=== PATIENT | female | born 1990 | race Caucasian/White ===

== ENCOUNTER 2021-11-04 17:04 | Day surgery (SDC) | payer OTHER, SELFPAY ==
[2021-11-04] MEDS ORDERED: hydrALAZINE 20 MG/ML VIAL SLOW IVP PRN (17:37)
[2021-11-04 17:53] VITALS: BMI 36.0
[2021-11-04] MEDS ORDERED: Lactated Ringer's 1,000 ML IV SCH (18:15)
[2021-11-04] MEDS ORDERED: Acetaminophen 500 MG TAB PO SCH (21:15)
[2021-11-04] MEDS ORDERED: Methocarbamol 500 MG TAB PO SCH (21:30)
[2021-11-05 00:38] LABS: Fetal Membranes Rupture No Membranes Rupture (No Rupture)
== END 2021-11-05 00:30 | disposition home or self-care (01) ==
LOC: CSHLD/OP 17:04
PROVIDERS: ATTEND Student in an Organized Health Care Education/Training Program
DX: O36.8130 Decreased fetal movements, third trimester, not applicable or unspecified (principal); O99.891 Other specified diseases and conditions complicating pregnancy; M54.50 Low back pain, unspecified; O99.283 Endocrine, nutritional and metabolic diseases complicating pregnancy, third trimester; E86.0 Dehydration; E28.2 Polycystic ovarian syndrome; O10.913 Unspecified pre-existing hypertension complicating pregnancy, third trimester; O99.213 Obesity complicating pregnancy, third trimester; Z3A.30 30 weeks gestation of pregnancy; Z87.891 Personal history of nicotine dependence; Z79.82 Long term (current) use of aspirin; Z91.018 Allergy to other foods
CPT/HCPCS: 76816; 76819; 84112; 96360; 96361; 99285

== ENCOUNTER 2021-11-20 16:48 | Inpatient (IN) | payer OTHER ==
[2021-11-20 17:43] VITALS: BMI 42.3
[2021-11-20 17:54] LABS: Hemoglobin 12.7 g/dL (12.0-15.5); Mean Corpuscular HGB CONC 34.5 g/dL (32.0-36.0); Mean Platelet Volume 11.9 fl (7.4-10.4); Platelet Count 159 10x3/uL (150-450); Red Blood Cell (RBC) Count 4.23 10x6/uL (3.90-5.03); White Blood Cell (WBC) Count 8.9 10x3/uL (3.5-10.5)
[2021-11-20 18:04] LABS: ALT (SGPT) 17 U/L (8-55); AST (SGOT) 18 U/L (5-34); Albumin 3.1 g/dL (3.5-5.0); Alkaline Phosphatase 139 U/L (40-110); Anion Gap 13 mmol/L (10-20); BUN (Urea Nitrogen) 7 mg/dL (7.0-18.7); Bilirubin, Total 0.2 mg/dL (0.2-1.2); Calc. Creatinine Clearance 292 mL/min (70-130); Calcium 8.9 mg/dL (7.8-10.44); Carbon Dioxide 20 mmol/L (22-29); Chloride 107 mmol/L (98-107); Estimated GFR 126; Globulin 2.9 g/dL (2.4-3.5); Glucose 172 mg/dL (70-105); Potassium 3.6 mmol/L (3.5-5.1); Sodium 136 mmol/L (136-145)
[2021-11-20] MEDS: hydrALAZINE 20 MG/ML VIAL SLOW IVP PRN ×3 (18:16→20:14)
[2021-11-20] MEDS ORDERED: hydrALAZINE 20 MG/ML VIAL SLOW IVP SCH (19:00)
[2021-11-20] MEDS ORDERED: Calcium Gluc 4.6 MEQ/10 ML (100 MG/ML) SLOW IVP PRN (19:01)
[2021-11-20] MEDS ORDERED: Labetalol HCl 100 MG/20 ML VIAL SLOW IVP PRN (19:01)
[2021-11-20] MEDS ORDERED: Lorazepam 2 MG/ML VIAL SLOW IVP PRN (19:01)
[2021-11-20] MEDS ORDERED: hydrALAZINE 20 MG/ML VIAL SLOW IVP PRN (19:01)
[2021-11-20] MEDS ORDERED: Promethazine HCl 25 MG/ML VIAL IM PRN (19:05)
[2021-11-20] MEDS ORDERED: Ondansetron PF 4 MG/2 ML Vial IVP PRN (19:05)
[2021-11-20] MEDS ORDERED: Magnesium Sulfate 20 gm/500 ml 20 GM/500 ML BAG ONE (19:12)
[2021-11-20] MEDS ORDERED: Magnesium Sulfate/D5W 1 GM/100 ML BAG IVPB SCH ×2 (19:15)
[2021-11-20] MEDS: Magnesium Sulfate 20 gm/500 ml 20 GM/500 ML BAG IVPB PRN ×2 (19:20→23:47)
[2021-11-20] MEDS: Betamet Acet/Betamet Na Ph 30 MG/5 ML VIAL IM SCH (19:55)
[2021-11-20 22:24] LABS: Hep B Surf Ag Non-Reactive S/CO (NonReactive); Syphilis Antibody Nonreactive (Nonreactive); Syphilis Antibody Index 0.04 S/CO (<1.00 Non-Reactive)
[2021-11-20 22:24] LABS: SARS-CoV-2 NAA Rapid Test DETECTED (NotDetected)
[2021-11-20 22:26] LABS: HBSAg Index 0.19 S/CO (0-0.99)
[2021-11-20 23:50] LABS: HIV (1/2) Antibody/Antigen Non-Reactive (NonReactive); HIV 1/2 INDEX 0.06 S/CO (<1.00)
[2021-11-21] MEDS: Labetalol HCl 100 MG TAB PO SCH ×2 (08:31→20:55)
[2021-11-21 10:11] LABS: #Monocytes 0.6 10x3/uL (0.0-1.1); %Basophils 0.1 % (0.0-2.0); %Eosinophils 0.1 % (0.0-6.0); %Lymphocytes 9.8 % (18.0-47.0); %Monocytes 4.3 % (0.0-10.0); %Neutrophils 85.2 % (40.0-75.0); Hemoglobin 13.1 g/dL (12.0-15.5); Mean Corpuscular HGB CONC 34.5 g/dL (32.0-36.0); Mean Corpuscular Hemoglobin 30.8 pg (27.0-33.0); Mean Corpuscular Volume 89.2 fl (81.6-98.3); Mean Platelet Volume 11.8 fl (7.4-10.4); Platelet Count 184 10x3/uL (150-450); RBC Distribution Width 12.9 % (11.5-14.5); Red Blood Cell (RBC) Count 4.26 10x6/uL (3.90-5.03); White Blood Cell (WBC) Count 12.9 10x3/uL (3.5-10.5)
[2021-11-21 10:48] LABS: ALT (SGPT) 17 U/L (8-55); AST (SGOT) 18 U/L (5-34); Albumin 3.2 g/dL (3.5-5.0); Alkaline Phosphatase 157 U/L (40-110); Anion Gap 15 mmol/L (10-20); BUN (Urea Nitrogen) 5 mg/dL (7.0-18.7); Bilirubin, Total 0.6 mg/dL (0.2-1.2); Calc. Creatinine Clearance 303 mL/min (70-130); Calcium 8.4 mg/dL (7.8-10.44); Carbon Dioxide 19 mmol/L (22-29); Chloride 105 mmol/L (98-107); Estimated GFR 127; Globulin 3.1 g/dL (2.4-3.5); Glucose 113 mg/dL (70-105); Potassium 3.9 mmol/L (3.5-5.1); Protein, Total 6.3 g/dL (6.0-8.3); Sodium 135 mmol/L (136-145)
[2021-11-21] MEDS: Betamet Acet/Betamet Na Ph 30 MG/5 ML VIAL IM SCH (19:16)
[2021-11-22] MEDS: Labetalol HCl 100 MG TAB PO SCH ×2 (08:29→20:56)
[2021-11-22] MEDS: Prenatal Vitamin 1 TAB PO SCH (08:29)
[2021-11-22] MEDS: Aspirin 81 mg Enteric Coated Tablet PO SCH (08:29)
[2021-11-22] MEDS ORDERED: Dextrose 5% in Water 1,000 ML IV PRN (21:38)
[2021-11-22] MEDS ORDERED: Dextrose 50% Abboject 50 ML SYRINGE SLOW IVP PRN (21:38)
[2021-11-22] MEDS ORDERED: HumaLOG 300 UNITS/3 ML VIAL SC SCH (22:00)
[2021-11-23] MEDS: Labetalol HCl 100 MG TAB PO SCH ×2 (08:14→21:47)
[2021-11-23] MEDS: Aspirin 81 mg Enteric Coated Tablet PO SCH (08:14)
[2021-11-23] MEDS: Prenatal Vitamin 1 TAB PO SCH (08:14)
[2021-11-24 04:53] LABS: ALT (SGPT) 16 U/L (8-55); AST (SGOT) 15 U/L (5-34); Albumin 2.9 g/dL (3.5-5.0); Alkaline Phosphatase 125 U/L (40-110); Anion Gap 16 mmol/L (10-20); BUN (Urea Nitrogen) 8 mg/dL (7.0-18.7); Bilirubin, Total 0.2 mg/dL (0.2-1.2); Calc. Creatinine Clearance 263 mL/min (70-130); Calcium 8.5 mg/dL (7.8-10.44); Carbon Dioxide 21 mmol/L (22-29); Chloride 105 mmol/L (98-107); Estimated GFR 123; Globulin 2.8 g/dL (2.4-3.5); Glucose 172 mg/dL (70-105); Protein, Total 5.7 g/dL (6.0-8.3); Sodium 138 mmol/L (136-145)
[2021-11-24 04:54] LABS: #Monocytes 1.2 10x3/uL (0.0-1.1); #Neutrophils 6.3 10x3/uL (1.5-8.4); %Basophils 0.2 % (0.0-2.0); %Eosinophils 0.1 % (0.0-6.0); %Lymphocytes 18.9 % (18.0-47.0); %Monocytes 12.4 % (0.0-10.0); Hemoglobin 11.6 g/dL (12.0-15.5); Mean Corpuscular HGB CONC 34.2 g/dL (32.0-36.0); Mean Corpuscular Hemoglobin 30.9 pg (27.0-33.0); Mean Corpuscular Volume 90.4 fl (81.6-98.3); Mean Platelet Volume 11.8 fl (7.4-10.4); Platelet Count 143 10x3/uL (150-450); RBC Distribution Width 13.4 % (11.5-14.5); Red Blood Cell (RBC) Count 3.75 10x6/uL (3.90-5.03); White Blood Cell (WBC) Count 9.4 10x3/uL (3.5-10.5)
[2021-11-24] MEDS: Prenatal Vitamin 1 TAB PO SCH (08:14)
[2021-11-24] MEDS: Aspirin 81 mg Enteric Coated Tablet PO SCH (08:14)
[2021-11-24] MEDS: Labetalol HCl 100 MG TAB PO SCH ×2 (08:14→20:27)
[2021-11-24 12:19] LABS: Hemoglobin A1c 5.7 % (4.0-6.0)
[2021-11-25] MEDS: Labetalol HCl 100 MG TAB PO SCH ×2 (07:57→20:30)
[2021-11-25] MEDS: Prenatal Vitamin 1 TAB PO SCH (07:57)
[2021-11-25] MEDS: Aspirin 81 mg Enteric Coated Tablet PO SCH (08:59)
[2021-11-25] MEDS ORDERED: HumaLOG 300 UNITS/3 ML VIAL SC PRN ×2 (11:37)
[2021-11-25] MEDS ORDERED: Magnesium Sulfate 4 GM in Sodium Chloride 0.9% 250 ML 250 ML IVPB SCH (19:00)
[2021-11-25] MEDS ORDERED: Magnesium 2 GM/50 ML(in water) 2 GM in Premix Bag 1 BAG IVPB SCH (19:00)
[2021-11-25] MEDS ORDERED: Ibuprofen 800 MG TAB PO PRN (19:44)
[2021-11-25] MEDS ORDERED: Diphenoxylate HCl/Atropine Tablet PO PRN (19:44)
[2021-11-25] MEDS ORDERED: Misoprostol 200 MCG TAB PR PRN (19:44)
[2021-11-25] MEDS ORDERED: Acetaminophen 500 MG TAB PO PRN (19:44)
[2021-11-25] MEDS ORDERED: Methylergonovine 0.2 MG/ML VIAL IM PRN (19:44)
[2021-11-25] MEDS ORDERED: NS w/ Oxytocin 30 units 500 ML IV SCH (19:44)
[2021-11-25] MEDS ORDERED: Lidocaine 1% (PF) 30 ML VIAL SC PRN (19:44)
[2021-11-25] MEDS ORDERED: Carboprost 250 MCG/ML AMP IM PRN (19:44)
[2021-11-25] MEDS ORDERED: Magnesium Sulfate 20 gm/500 ml 4 GM/100 ML BAG IVPB SCH (19:45)
[2021-11-25] MEDS ORDERED: Magnesium Sulfate 20 gm/500 ml 20 GM/500 ML BAG IVPB PRN (19:45)
[2021-11-25] MEDS ORDERED: Misoprostol 100 MCG TAB ONE (19:52)
[2021-11-25] MEDS ORDERED: Magnesium Sulfate 20 gm/500 ml 20 GM/500 ML BAG ONE (19:52)
[2021-11-25 22:12] LABS: Hemoglobin 13.8 g/dL (12.0-15.5); Mean Corpuscular HGB CONC 33.4 g/dL (32.0-36.0); Mean Corpuscular Hemoglobin 30.5 pg (27.0-33.0); Mean Corpuscular Volume 91.2 fl (81.6-98.3); Mean Platelet Volume 11.8 fl (7.4-10.4); Platelet Count 157 10x3/uL (150-450); RBC Distribution Width 13.3 % (11.5-14.5); Red Blood Cell (RBC) Count 4.53 10x6/uL (3.90-5.03); White Blood Cell (WBC) Count 11.2 10x3/uL (3.5-10.5)
[2021-11-25] MEDS: Misoprostol 100 MCG TAB VAG SCH (22:52)
[2021-11-26] MEDS ORDERED: Misoprostol 100 MCG TAB PO ONE (02:30)
[2021-11-26] MEDS: Magnesium Sulfate 20 gm/500 ml 20 GM/500 ML BAG IVPB PRN ×2 (04:24→23:54)
[2021-11-26] MEDS ORDERED: Misoprostol 100 MCG TAB PO SCH (08:00)
[2021-11-26] MEDS: Prenatal Vitamin 1 TAB PO SCH (08:15)
[2021-11-26] MEDS: Labetalol HCl 100 MG TAB PO SCH ×2 (08:15→21:11)
[2021-11-26] MEDS: Butorphanol Tartrate 1 MG/ML VIAL SLOW IVP PRN ×4 (13:17→19:06)
[2021-11-26 13:57] LABS: SARS-CoV-2 NAA Rapid Test Not Detected (NotDetected)
[2021-11-26] MEDS ORDERED: NS w/ Oxytocin 30 units 500 ML IV SCH (14:15)
[2021-11-26] MEDS ORDERED: hydrALAZINE 20 MG/ML VIAL ONE (17:06)
[2021-11-27] MEDS: Lactated Ringer's 1,000 ML IV SCH ×4 (03:37→20:19)
[2021-11-27] MEDS: Misoprostol 100 MCG TAB VAG SCH ×4 (03:38→15:24)
[2021-11-27] MEDS ORDERED: Famotidine/PF 20 mg/2ml Vial SLOW IVP PRN (09:42)
[2021-11-27] MEDS ORDERED: Bicitra 30 ML UDCUP PO PRN (09:42)
[2021-11-27] MEDS ORDERED: ceFAZolin 2 GM/Dextrose 50 ML 2 GM in Premix Bag 1 BAG IVPB SCH (09:45)
[2021-11-27] MEDS ORDERED: PHENYLEPHRINE-NS 100 MCG/ML 10 ML SYRINGE ONE (10:14)
[2021-11-27] MEDS ORDERED: Morphine PF 10 MG/10 ML VIAL ONE (10:14)
[2021-11-27] MEDS ORDERED: Ketorolac Tromethamine 30 MG/ML VIAL ONE ×2 (10:14→10:40)
[2021-11-27] MEDS ORDERED: Ondansetron PF 4 MG/2 ML Vial ONE ×2 (10:14→10:40)
[2021-11-27] MEDS ORDERED: ePHEDrine Sulfate 50 MG/10 ML VIAL ONE ×2 (10:14→11:53)
[2021-11-27] MEDS ORDERED: Oxytocin 10 UNITS/ML VIAL ONE ×2 (10:14→11:09)
[2021-11-27] MEDS ORDERED: Phenylephrine 40 MG/NS 250 ML 0 ML ONE (10:14)
[2021-11-27] MEDS ORDERED: Phenylephrine 40 MG/NS 250 ML 250 ML ONE (10:18)
[2021-11-27] MEDS ORDERED: Dexamethasone 4 mg/ml Vial ONE (10:40)
[2021-11-27] MEDS ORDERED: Ondansetron HCl/PF 4 MG/2 ML Vial IVP PRN (12:03)
[2021-11-27] MEDS ORDERED: Moisturizing Cream (Eucerin) 113 GM JAR TOP PRN (12:03)
[2021-11-27] MEDS ORDERED: Simethicone Chewable 80 MG TAB PO PRN (12:03)
[2021-11-27] MEDS ORDERED: Fentanyl 100 MCG/2 ML VIAL SLOW IVP PRN (12:03)
[2021-11-27] MEDS ORDERED: Promethazine HCl 25 MG SUPP PR PRN (12:03)
[2021-11-27] MEDS ORDERED: Promethazine HCl 25 MG/ML VIAL IM PRN ×2 (12:03)
[2021-11-27] MEDS ORDERED: Misoprostol 200 MCG TAB PR PRN (12:03)
[2021-11-27] MEDS ORDERED: Acetaminophen 325 MG TAB PO PRN (12:03)
[2021-11-27] MEDS ORDERED: Ondansetron PF 4 MG/2 ML Vial IVP PRN ×2 (12:03)
[2021-11-27] MEDS ORDERED: Lanolin Ointment 7 GM TUBE TOP PRN (12:03)
[2021-11-27] MEDS ORDERED: Naloxone HCl 0.4 mg/ml Vial IV PRN (12:03)
[2021-11-27] MEDS ORDERED: diphenhydrAMINE 50 MG/ML VIAL IVP PRN (12:03)
[2021-11-27] MEDS ORDERED: Bisacodyl 10 MG SUPP PR PRN (12:03)
[2021-11-27] MEDS ORDERED: hydrALAZINE 20 MG/ML VIAL SLOW IVP PRN ×2 (12:03→14:27)
[2021-11-27] MEDS ORDERED: Naloxone HCl 0.4 mg/ml Vial IVP PRN ×2 (12:03)
[2021-11-27] MEDS ORDERED: Meperidine HCl/PF 25 MG/ML VIAL SLOW IVP PRN (12:03)
[2021-11-27] MEDS ORDERED: NS w/ Oxytocin 30 units 500 ML IV SCH (12:15)
[2021-11-27] MEDS ORDERED: Communication Order-Pharmacy FS SCH (12:15)
[2021-11-27] MEDS: Aspirin 81 mg Enteric Coated Tablet PO SCH ×2 (15:22→15:23)
[2021-11-27] MEDS: Prenatal Vitamin 1 TAB PO SCH (15:23)
[2021-11-27] MEDS: Labetalol HCl 100 MG TAB PO SCH (15:23)
[2021-11-27] MEDS ORDERED: Ketorolac Tromethamine 30 MG/ML VIAL IVP SCH (18:15)
[2021-11-27] MEDS: Magnesium Sulfate 20 gm/500 ml 20 GM/500 ML BAG IVPB SCH (20:19)
[2021-11-27] MEDS: Ketorolac Tromethamine 30 MG/ML VIAL IVP PRN (22:41)
[2021-11-28] MEDS ORDERED: HYDROcodone/Acetaminophen 5/325 mg Tablet PO PRN (00:15)
[2021-11-28] MEDS: Magnesium Sulfate 20 gm/500 ml 20 GM/500 ML BAG IVPB SCH (04:54)
[2021-11-28] MEDS: Ketorolac Tromethamine 30 MG/ML VIAL IVP PRN (04:58)
[2021-11-28 05:15] LABS: Hemoglobin 12.2 g/dL (12.0-15.5); Mean Corpuscular HGB CONC 34.5 g/dL (32.0-36.0); Mean Corpuscular Hemoglobin 30.8 pg (27.0-33.0); Mean Corpuscular Volume 89.4 fl (81.6-98.3); Mean Platelet Volume 11.5 fl (7.4-10.4); Platelet Count 141 10x3/uL (150-450); RBC Distribution Width 13.1 % (11.5-14.5); Red Blood Cell (RBC) Count 3.96 10x6/uL (3.90-5.03); White Blood Cell (WBC) Count 11.1 10x3/uL (3.5-10.5)
[2021-11-28] MEDS: Ferrous Sulfate 325 MG TAB PO SCH ×3 (09:40→21:31)
[2021-11-28] MEDS: Labetalol HCl 100 MG TAB PO SCH ×3 (09:44→23:57)
[2021-11-28] MEDS: Prenatal Vitamin 1 TAB PO SCH (09:44)
[2021-11-28] MEDS ORDERED: Boostrix 0.5 ML (Tdap) VIAL IM ONE (12:03)
[2021-11-28] MEDS ORDERED: Lorazepam 2 MG/ML VIAL SLOW IVP PRN (13:07)
[2021-11-28] MEDS ORDERED: Calcium Gluc 4.6 MEQ/10 ML (100 MG/ML) SLOW IVP PRN (13:07)
[2021-11-28] MEDS: HYDROcodone/Acetaminophen 5/325 mg Tablet PO PRN ×2 (19:21→23:58)
[2021-11-29] MEDS: Ibuprofen 800 MG TAB PO SCH ×2 (05:13→13:55)
[2021-11-29 05:48] LABS: Hemoglobin 11.1 g/dL (12.0-15.5); Mean Corpuscular HGB CONC 34.4 g/dL (32.0-36.0); Mean Corpuscular Hemoglobin 31.3 pg (27.0-33.0); Mean Platelet Volume 11.8 fl (7.4-10.4); Platelet Count 141 10x3/uL (150-450); RBC Distribution Width 13.5 % (11.5-14.5); Red Blood Cell (RBC) Count 3.55 10x6/uL (3.90-5.03); White Blood Cell (WBC) Count 8.9 10x3/uL (3.5-10.5)
[2021-11-29] MEDS: Ferrous Sulfate 325 MG TAB PO SCH (08:50)
[2021-11-29] MEDS: Prenatal Vitamin 1 TAB PO SCH (09:52)
[2021-11-29] MEDS: Labetalol HCl 100 MG TAB PO SCH (09:53)
[2021-11-29 15:34] VITALS: BP 137/70; TEMP 98.5
== END 2021-11-29 15:45 | disposition home or self-care (01) | DRG 786 ==
LOC: CSHLD/OP 16:48 → CSHLD 19:18 → CSHANTE 11-21 20:50 → CSHLD 11-25 18:28 → CSHPP 11-27 14:40 → CSHLD 11-27 22:58 → CSHPED 11-28 12:45
PROVIDERS: ADMIT Family Medicine; ATTEND Family Medicine
PROC: 8E0ZXY6 Isolation (ICD-10-PCS; 2021-11-20)
PROC: 3E0P7VZ Introduction of Hormone into Female Reproductive, Via Natural or Artificial Opening (ICD-10-PCS; 2021-11-26)
PROC: 0U7C7ZZ Dilation of Cervix, Via Natural or Artificial Opening (ICD-10-PCS; 2021-11-26)
PROC: 3E033VJ Introduction of Other Hormone into Peripheral Vein, Percutaneous Approach (ICD-10-PCS; 2021-11-26)
PROC: 10D00Z1 Extraction of Products of Conception, Low, Open Approach (ICD-10-PCS; principal; 2021-11-27)
DX: O11.4 Pre-existing hypertension with pre-eclampsia, complicating childbirth (principal); U07.1 COVID-19; O98.52 Other viral diseases complicating childbirth; O10.92 Unspecified pre-existing hypertension complicating childbirth; O36.63X0 Maternal care for excessive fetal growth, third trimester, not applicable or unspecified; O36.8130 Decreased fetal movements, third trimester, not applicable or unspecified; O61.0 Failed medical induction of labor; Z3A.33 33 weeks gestation of pregnancy; Z37.0 Single live birth; Z79.82 Long term (current) use of aspirin; Z91.018 Allergy to other foods
CPT/HCPCS: 36415; 36416; 76816; 76819; 80053; 82570; 83036; 84156; 85025; 85027; 86780; 86850; 86900; 86901; 87081; 87340; 87389; J0360; J0595; J0702; J1100; J1815; J1885; J2274; J2405; J2590; J3475; J7120; U0002

== ENCOUNTER 2023-05-01 13:23 | Day surgery (SDC) | payer OTHER ==
[2023-05-01 13:57] VITALS: BMI 36.1
[2023-05-01] MEDS ORDERED: hydrALAZINE 20 MG/ML VIAL SLOW IVP PRN (14:24)
[2023-05-01] MEDS ORDERED: Ondansetron ODT 4 MG TAB PO PRN (14:25)
[2023-05-01 14:56] LABS: Bilirubin Neg (Negative); Blood, Urine 10 (Negative); Clarity Slightly Cloudy (Clear); Glucose, Urine (Dipstick) Normal (Negative); Ketone, Urine 150 mg/dL (Negative); Leukocyte 25 (Negative); Nitrite Negative (Negative); Protein, Urine (Dipstick) 30 mg/dl (Neg-Trace); Specific Gravity, Urine 1.025 (1.005-1.030); Urobilinogen Normal mg/dL (Less than 2)
[2023-05-01 15:06] LABS: Fetal Membranes Rupture No Membranes Rupture (No Rupture)
[2023-05-01 16:33] LABS: CAUTI Indications for Culture Pregnancy; RBC/HPF 0-3 HPF (0-3)
[2023-05-01 16:34] LABS: Bacteria/HPF 3+ HPF (None Seen)
[2023-05-01 16:37] LABS: Urine Culture Reflex Yes Yes
[2023-05-01] MEDS ORDERED: cefTRIAXone (ROCEPHIN) 1 GM VIAL IM SCH (16:45)
== END 2023-05-01 17:12 | disposition home or self-care (01) ==
LOC: CSHLD/OP 13:23
PROVIDERS: ATTEND Family Medicine
DX: O99.891 Other specified diseases and conditions complicating pregnancy (principal); M54.50 Low back pain, unspecified; O41.8X30 Other specified disorders of amniotic fluid and membranes, third trimester, not applicable or unspecified; O99.213 Obesity complicating pregnancy, third trimester; E66.9 Obesity, unspecified; O99.283 Endocrine, nutritional and metabolic diseases complicating pregnancy, third trimester; E03.9 Hypothyroidism, unspecified; O16.3 Unspecified maternal hypertension, third trimester; Z3A.32 32 weeks gestation of pregnancy; Z91.018 Allergy to other foods
CPT/HCPCS: 81001; 84112; 87086; 87480; 87510; 87660; 96372; 99285; J0696

== ENCOUNTER 2023-05-26 14:48 | Day surgery (SDC) | payer OTHER ==
[~2023-05-26 14:48] MED LIST: Iopamidol 370 76% 100 ML VIAL ONE
[2023-05-26 15:27] VITALS: BMI 37.7
[2023-05-26 16:22] LABS: Bilirubin Neg (Negative); Blood, Urine 25 (Negative); Clarity Slightly Cloudy (Clear); Glucose, Urine (Dipstick) 100 mg/dL (Negative); Ketone, Urine 5 mg/dL (Negative); Leukocyte 25 (Negative); Nitrite Negative (Negative); Protein, Urine (Dipstick) 30 mg/dl (Neg-Trace); Specific Gravity, Urine 1.025 (1.005-1.030); Urobilinogen Normal mg/dL (Less than 2)
[2023-05-26] MEDS ORDERED: Lactated Ringer's 1,000 ML IV SCH (16:30)
[2023-05-26 16:37] LABS: Creatinine, Urine 209.64 mg/dL (47-110)
[2023-05-26 16:38] LABS: Calcium Oxalate Crystals 4+ HPF (None Seen)
[2023-05-26 16:39] LABS: Bacteria/HPF 2+ HPF (None Seen)
[2023-05-26 16:41] LABS: CAUTI Indications for Culture Pregnancy; RBC/HPF 0-3 HPF (0-3); WBC/HPF 0-3 HPF (0-3)
[2023-05-26 16:43] LABS: Mucous/LPF 3+ LPF (<2+)
[2023-05-26 16:45] LABS: Urine Culture Reflex Yes Yes
[2023-05-26 16:49] LABS: #Eosinphils 0.1 10x3/uL (0.0-0.5); %Basophils 0.2 % (0.0-2.0); %Lymphocytes 23.7 % (18.0-47.0); %Monocytes 9.2 % (0.0-10.0); %Neutrophils 65.5 % (40.0-75.0); Hematocrit 36.9 % (34.9-44.5); Hemoglobin 12.4 g/dL (12.0-15.5); Mean Corpuscular HGB CONC 33.6 g/dL (32.0-36.0); Mean Corpuscular Volume 89.1 fl (81.6-98.3); Mean Platelet Volume 11.1 fl (7.4-10.4); Platelet Count 233 10x3/uL (150-450); RBC Distribution Width 12.2 % (11.5-14.5); Red Blood Cell (RBC) Count 4.14 10x6/uL (3.90-5.03); White Blood Cell (WBC) Count 10.7 10x3/uL (3.5-10.5)
[2023-05-26 17:07] LABS: ALT (SGPT) 9 U/L (8-55); AST (SGOT) 14 U/L (5-34); Albumin 3.3 g/dL (3.5-5.0); Alkaline Phosphatase 117 U/L (40-110); Anion Gap 13 mmol/L (10-20); BUN (Urea Nitrogen) 5 mg/dL (7.0-18.7); Bilirubin, Total 0.3 mg/dL (0.2-1.2); Calc. Creatinine Clearance 228 mL/min (70-130); Calcium 8.5 mg/dL (7.8-10.44); Carbon Dioxide 20 mmol/L (22-29); Chloride 106 mmol/L (98-107); Estimated GFR 122; Glucose 109 mg/dL (70-105); Potassium 3.9 mmol/L (3.5-5.1); Protein, Total 6.3 g/dL (6.0-8.3); Sodium 135 mmol/L (136-145)
[2023-05-26 17:32] LABS: SARS-CoV-2 NAA Rapid Test Not Detected (NotDetected)
== END 2023-05-26 23:49 | disposition home or self-care (01) ==
LOC: CSHLD/OP 14:48
PROVIDERS: ATTEND Family Medicine
DX: O99.213 Obesity complicating pregnancy, third trimester (principal); O99.283 Endocrine, nutritional and metabolic diseases complicating pregnancy, third trimester; O10.013 Pre-existing essential hypertension complicating pregnancy, third trimester; O11.3 Pre-existing hypertension with pre-eclampsia, third trimester; E66.9 Obesity, unspecified; E03.9 Hypothyroidism, unspecified; Z3A.35 35 weeks gestation of pregnancy; Z79.82 Long term (current) use of aspirin; Z79.899 Other long term (current) drug therapy; Z98.890 Other specified postprocedural states; Z79.890 Hormone replacement therapy; Z91.018 Allergy to other foods
CPT/HCPCS: 36415; 71275; 76819; 80053; 81001; 82570; 84156; 85025; 85379; 87086; 93005; 93010; 93970; Q9967

== ENCOUNTER 2023-06-09 07:30 | Inpatient (IN) | payer OTHER ==
[2023-06-11 11:49] LABS: Hematocrit 39.5 % (34.9-44.5); Hemoglobin 13.8 g/dL (12.0-15.5); Mean Corpuscular HGB CONC 34.9 g/dL (32.0-36.0); Mean Corpuscular Hemoglobin 30.2 pg (27.0-33.0); Mean Corpuscular Volume 86.4 fl (81.6-98.3); Mean Platelet Volume 11.9 fl (7.4-10.4); Platelet Count 256 10x3/uL (150-450); RBC Distribution Width 11.9 % (11.5-14.5); Red Blood Cell (RBC) Count 4.57 10x6/uL (3.90-5.03); White Blood Cell (WBC) Count 12.9 10x3/uL (3.5-10.5)
[2023-06-11 11:57] LABS: Syphilis Antibody Nonreactive (Nonreactive); Syphilis Antibody Index 0.05 S/CO (<1.00 Non-Reactive)
[2023-06-11 11:58] LABS: HBSAg Index 0.15 S/CO (0-0.99); Hep B Surf Ag Non-Reactive S/CO (NonReactive)
[2023-06-12 06:14] VITALS: BMI 36.8
[2023-06-12] MEDS ORDERED: Ondansetron PF 4 MG/2 ML Vial IVP PRN ×3 (06:35→07:14)
[2023-06-12] MEDS ORDERED: Promethazine HCl 25 MG/ML VIAL IM PRN ×2 (06:35→07:14)
[2023-06-12] MEDS ORDERED: hydrALAZINE 20 MG/ML VIAL SLOW IVP PRN ×2 (06:35→10:44)
[2023-06-12] MEDS ORDERED: Famotidine/PF 20 mg/2ml Vial SLOW IVP PRN (06:35)
[2023-06-12] MEDS ORDERED: Bicitra 30 ML UDCUP PO PRN (06:35)
[2023-06-12] MEDS ORDERED: Acetaminophen 500 MG TAB PO PRN (06:37)
[2023-06-12] MEDS ORDERED: Tranexamic Acid 1,000 MG/10 ML VIAL IVP PRN (06:37)
[2023-06-12] MEDS ORDERED: Methylergonovine 0.2 MG/ML VIAL IM PRN (06:37)
[2023-06-12] MEDS ORDERED: Carboprost 250 MCG/ML AMP IM PRN (06:37)
[2023-06-12] MEDS ORDERED: Misoprostol 200 MCG TAB PR PRN (06:37)
[2023-06-12] MEDS ORDERED: Lactated Ringer's 1,000 ML IV SCH (06:45)
[2023-06-12] MEDS ORDERED: Oxytocin 30 units/NS 500 ML 500 ML IV SCH (06:45)
[2023-06-12] MEDS ORDERED: CEFAZOLIN 2 GM in Sodium Chloride 0.9% 100 ML IVPB SCH (06:45)
[2023-06-12] MEDS ORDERED: Fentanyl 250 MCG/5 ML VIAL ONE (07:00)
[2023-06-12] MEDS ORDERED: Lidocaine 1% PF 5 ML VIAL ONE (07:00)
[2023-06-12] MEDS ORDERED: Midazolam HCl 2 mg/2 ml Vial ONE (07:00)
[2023-06-12] MEDS ORDERED: PROPOFOL 0 ML ONE (07:00)
[2023-06-12] MEDS ORDERED: Rocuronium Bromide 10 MG/ML (10ML VIAL) ONE (07:00)
[2023-06-12] MEDS ORDERED: Ondansetron PF 4 MG/2 ML Vial ONE ×2 (07:00→07:01)
[2023-06-12] MEDS ORDERED: PHENYLEPHRINE-NS 100 MCG/ML 10 ML SYRINGE ONE ×2 (07:01→07:03)
[2023-06-12] MEDS ORDERED: Dexamethasone 4 mg/ml Vial ONE (07:01)
[2023-06-12] MEDS ORDERED: Ketorolac Tromethamine 30 MG (1 mL) VIAL ONE (07:01)
[2023-06-12] MEDS ORDERED: ePHEDrine Sulfate 50 MG/10 ML VIAL ONE (07:01)
[2023-06-12] MEDS ORDERED: Phenylephrine 40 MG/NS 250 ML 250 ML ONE (07:01)
[2023-06-12] MEDS ORDERED: Glycopyrrolate 0.2 MG/ML 5 ML SYRINGE ONE (07:01)
[2023-06-12] MEDS ORDERED: Oxytocin 10 UNITS/ML VIAL ONE (07:01)
[2023-06-12] MEDS ORDERED: Morphine PF 10 MG/10 ML VIAL ONE (07:02)
[2023-06-12] MEDS ORDERED: Promethazine HCl 25 MG SUPP PR PRN (07:14)
[2023-06-12] MEDS ORDERED: Moisturizing Cream (Eucerin) 113 GM JAR TOP PRN (07:14)
[2023-06-12] MEDS ORDERED: Naloxone HCl 0.4 mg/ml Vial IV PRN (07:14)
[2023-06-12] MEDS ORDERED: Meperidine HCl/PF 25 MG (1 mL) VIAL SLOW IVP PRN (07:14)
[2023-06-12] MEDS ORDERED: fentaNYL 50 mcg/mL 1 mL Vial SLOW IVP PRN (07:14)
[2023-06-12] MEDS ORDERED: Naloxone HCl 0.4 mg/ml Vial IVP PRN ×2 (07:14)
[2023-06-12] MEDS ORDERED: diphenhydrAMINE 50 MG/ML VIAL IVP PRN (07:14)
[2023-06-12] MEDS ORDERED: Ketorolac Tromethamine 30 MG (1 mL) VIAL IVP SCH (07:15)
[2023-06-12] MEDS ORDERED: Communication Order-Pharmacy FS SCH (07:15)
[2023-06-12] MEDS ORDERED: Acetaminophen 325 MG TAB PO PRN (10:44)
[2023-06-12] MEDS ORDERED: diphenhydrAMINE 25 MG CAP PO PRN (10:44)
[2023-06-12] MEDS ORDERED: Lanolin Ointment 7 GM TUBE TOP PRN (10:44)
[2023-06-12] MEDS ORDERED: Boostrix 0.5 ML (Tdap) VIAL (>/=7 yrs of age) IM ONE (10:44)
[2023-06-12] MEDS: Ketorolac Tromethamine 30 MG (1 mL) VIAL IVP PRN (18:01)
[2023-06-12] MEDS: Docusate 100 MG CAP PO SCH (21:15)
[2023-06-13] MEDS: Ketorolac Tromethamine 30 MG (1 mL) VIAL IVP PRN ×2 (00:09→06:06)
[2023-06-13 05:44] LABS: Hematocrit 31.4 % (34.9-44.5); Hemoglobin 10.6 g/dL (12.0-15.5); Mean Corpuscular HGB CONC 33.8 g/dL (32.0-36.0); Mean Corpuscular Hemoglobin 29.9 pg (27.0-33.0); Mean Corpuscular Volume 88.5 fl (81.6-98.3); Mean Platelet Volume 12.3 fl (7.4-10.4); Platelet Count 234 10x3/uL (150-450); RBC Distribution Width 11.7 % (11.5-14.5); Red Blood Cell (RBC) Count 3.55 10x6/uL (3.90-5.03); White Blood Cell (WBC) Count 15.4 10x3/uL (3.5-10.5)
[2023-06-13] MEDS: Docusate 100 MG CAP PO SCH ×2 (08:38→19:59)
[2023-06-13] MEDS ORDERED: Prenatal Vitamin 1 TAB PO SCH (09:00)
[2023-06-13] MEDS ORDERED: HYDROcodone/Acetaminophen 5/325 mg Tablet PO PRN ×2 (09:20→10:44)
[2023-06-13] MEDS: Acetaminophen 500 MG TAB PO SCH ×3 (09:45→22:06)
[2023-06-13] MEDS ORDERED: Ibuprofen 600 MG TAB PO SCH (10:00)
[2023-06-13] MEDS: Ibuprofen 600 MG TAB PO SCH ×2 (13:26→17:57)
[2023-06-13] MEDS ORDERED: Ibuprofen 800 MG TAB PO SCH (14:00)
[2023-06-13 20:39] VITALS: BP 128/84; TEMP 98
== END 2023-06-13 23:25 | disposition home or self-care (01) | DRG 788 ==
LOC: CSHLD 06-12 05:31 → CSHPP 06-12 12:07
PROVIDERS: ADMIT Obstetrics & Gynecology; ATTEND Obstetrics & Gynecology
PROC: 10D00Z1 Extraction of Products of Conception, Low, Open Approach (ICD-10-PCS; principal; 2023-06-12)
PROC: 3E033XZ Introduction of Vasopressor into Peripheral Vein, Percutaneous Approach (ICD-10-PCS; 2023-06-12)
DX: O34.211 Maternal care for low transverse scar from previous cesarean delivery (principal); O99.824 Streptococcus B carrier state complicating childbirth; O99.284 Endocrine, nutritional and metabolic diseases complicating childbirth; Z3A.38 38 weeks gestation of pregnancy; Z37.0 Single live birth; E03.8 Other specified hypothyroidism; O16.4 Unspecified maternal hypertension, complicating childbirth
CPT/HCPCS: 36415; 51702; 85027; 86780; 86850; 86900; 86901; 87340; J1100; J1885; J2250; J2274; J2405; J2590; J2704; J3010; J3490

== ENCOUNTER 2025-02-09 23:32 | Day surgery (SDC) | payer OTHER ==
[2025-02-09] MEDS ORDERED: hydrALAZINE 20 MG/ML VIAL SLOW IVP PRN (23:58)
[2025-02-10 01:06] LABS: ALT (SGPT) 9 U/L (Less than 34); AST (SGOT) 13 U/L (11-34); Albumin 3.4 g/dL (3.1-4.5); Alkaline Phosphatase 94 U/L (40-110); Anion Gap 17 mmol/L (10-20); BUN (Urea Nitrogen) 6 mg/dL (7.0-18.7); Bilirubin, Total 0.4 mg/dL (0.3-1.2); Calc. Creatinine Clearance 0 mL/min (70-130); Calcium 8.3 mg/dL (7.8-10.44); Carbon Dioxide 17 mmol/L (22-29); Chloride 108 mmol/L (98-107); Globulin 3.3 g/dL (2.4-3.5); Glucose 94 mg/dL (70-105); Lipase 11 U/L (8-78); Potassium 3.7 mmol/L (3.5-5.1); Sodium 138 mmol/L (136-145)
[2025-02-10 01:50] LABS: Glucose, Urine (Dipstick) Normal (Negative); Leukocyte 25 (Negative); Protein, Urine (Dipstick) 100 mg/dl (Neg-Trace); Specific Gravity, Urine 1.025 (1.005-1.030)
[2025-02-10 01:53] VITALS: BMI 34.7
[2025-02-10 02:07] LABS: CAUTI Indications for Culture Pregnancy; RBC/HPF 0-3 HPF (0-3); WBC/HPF 0-3 HPF (0-3)
[2025-02-10 02:08] LABS: Bacteria/HPF 1+ HPF (None Seen); Mucous/LPF 2+ LPF (<2+)
[2025-02-10 02:09] LABS: Urine Culture Reflex Yes Yes
[2025-02-10 02:42] LABS: #Basophils 0.03 10x3/uL (0.0-0.2); #Eosinophils 0.28 10x3/uL (0.0-0.5); #Monocytes 1.21 10x3/uL (0.0-1.1); #Neutrophils 14.12 10x3/uL (1.5-8.4); %Basophils 0.2 % (0.0-2.0); %Eosinophils 1.6 % (0.0-6.0); %Lymphocytes 9.4 % (18.0-47.0); %Monocytes 6.9 % (0.0-10.0); %Neutrophils 81.0 % (40.0-75.0); Hematocrit 39.5 % (34.9-44.5); Hemoglobin 13.4 g/dL (12.0-15.5); Mean Corpuscular Hemoglobin 30.5 pg (27.0-33.0); Mean Corpuscular Volume 90.0 fL (81.6-98.3); Platelet Count 152 10x3/uL (150-450); Red Blood Cell (RBC) Count 4.39 10x6/uL (3.90-5.03); White Blood Cell (WBC) Count 17.42 10x3/uL (3.5-10.5)
[2025-02-10] MEDS: Acetaminophen 500 MG TAB PO SCH (03:40)
== END 2025-02-10 03:43 | disposition home or self-care (01) ==
LOC: CSHLD/OP 23:32
PROVIDERS: ATTEND Family Medicine
DX: O21.2 Late vomiting of pregnancy (principal); O99.891 Other specified diseases and conditions complicating pregnancy; R10.11 Right upper quadrant pain; R10.13 Epigastric pain; O36.8130 Decreased fetal movements, third trimester, not applicable or unspecified; Z3A.33 33 weeks gestation of pregnancy; Z91.018 Allergy to other foods
CPT/HCPCS: 76705; 76819; 80053; 81001; 83690; 85025; 87086; 96360; 99285

== ENCOUNTER 2025-02-18 13:25 | Day surgery (SDC) | payer OTHER ==
[2025-02-18 14:50] LABS: Protein, Urine Random Quant 43.0 mg/dL (1-14)
[2025-02-18 15:27] LABS: #Basophils 0.03 10x3/uL (0.0-0.2); #Eosinophils 0.17 10x3/uL (0.0-0.5); #Monocytes 0.96 10x3/uL (0.0-1.1); #Neutrophils 6.71 10x3/uL (1.5-8.4); %Basophils 0.3 % (0.0-2.0); %Eosinophils 1.7 % (0.0-6.0); %Lymphocytes 22.8 % (18.0-47.0); %Monocytes 9.3 % (0.0-10.0); %Neutrophils 65.1 % (40.0-75.0); Hematocrit 34.7 % (34.9-44.5); Hemoglobin 11.8 g/dL (12.0-15.5); Mean Corpuscular Hemoglobin 30.5 pg (27.0-33.0); Mean Corpuscular Volume 89.7 fL (81.6-98.3); Platelet Count 158 10x3/uL (150-450); Red Blood Cell (RBC) Count 3.87 10x6/uL (3.90-5.03); White Blood Cell (WBC) Count 10.30 10x3/uL (3.5-10.5)
[2025-02-18 15:44] LABS: ALT (SGPT) Less than 7 U/L (Less than 34); AST (SGOT) 12 U/L (11-34); Albumin 3.1 g/dL (3.1-4.5); Alkaline Phosphatase 87 U/L (40-110); Anion Gap 15 mmol/L (10-20); BUN (Urea Nitrogen) 7 mg/dL (7.0-18.7); Bilirubin, Total 0.3 mg/dL (0.3-1.2); Calc. Creatinine Clearance 0 mL/min (70-130); Calcium 8.4 mg/dL (7.8-10.44); Carbon Dioxide 17 mmol/L (22-29); Chloride 111 mmol/L (98-107); Globulin 3.2 g/dL (2.4-3.5); Glucose 103 mg/dL (70-105); Potassium 3.5 mmol/L (3.5-5.1); Sodium 139 mmol/L (136-145)
== END 2025-02-18 16:49 | disposition home or self-care (01) ==
LOC: CSHLD/OP 13:25
PROVIDERS: ATTEND Obstetrics & Gynecology
DX: O10.913 Unspecified pre-existing hypertension complicating pregnancy, third trimester (principal); O24.419 Gestational diabetes mellitus in pregnancy, unspecified control; O99.283 Endocrine, nutritional and metabolic diseases complicating pregnancy, third trimester; Z3A.34 34 weeks gestation of pregnancy; Z91.018 Allergy to other foods
CPT/HCPCS: 80053; 82570; 84156; 85025; 99284

== ENCOUNTER 2025-02-22 12:41 | Day surgery (SDC) | payer OTHER ==
[2025-02-22 14:50] LABS: #Basophils 0.03 10x3/uL (0.0-0.2); #Eosinophils 0.16 10x3/uL (0.0-0.5); #Monocytes 0.84 10x3/uL (0.0-1.1); #Neutrophils 6.99 10x3/uL (1.5-8.4); %Basophils 0.3 % (0.0-2.0); %Eosinophils 1.6 % (0.0-6.0); %Lymphocytes 17.4 % (18.0-47.0); %Monocytes 8.6 % (0.0-10.0); %Neutrophils 71.3 % (40.0-75.0); Hematocrit 36.6 % (34.9-44.5); Hemoglobin 12.5 g/dL (12.0-15.5); Mean Corpuscular Hemoglobin 30.3 pg (27.0-33.0); Mean Corpuscular Volume 88.8 fL (81.6-98.3); Platelet Count 183 10x3/uL (150-450); Red Blood Cell (RBC) Count 4.12 10x6/uL (3.90-5.03); White Blood Cell (WBC) Count 9.81 10x3/uL (3.5-10.5)
[2025-02-22 15:12] LABS: ALT (SGPT) 8 U/L (Less than 34); AST (SGOT) 12 U/L (11-34); Albumin 3.4 g/dL (3.1-4.5); Alkaline Phosphatase 107 U/L (40-110); Anion Gap 12 mmol/L (10-20); BUN (Urea Nitrogen) 5 mg/dL (7.0-18.7); Bilirubin, Total 0.4 mg/dL (0.3-1.2); Calc. Creatinine Clearance 0 mL/min (70-130); Calcium 8.5 mg/dL (7.8-10.44); Carbon Dioxide 20 mmol/L (22-29); Chloride 110 mmol/L (98-107); Globulin 3.0 g/dL (2.4-3.5); Glucose 114 mg/dL (70-105); Potassium 3.6 mmol/L (3.5-5.1); Sodium 138 mmol/L (136-145)
[2025-02-22 15:34] LABS: Protein, Urine Random Quant 119.0 mg/dL (1-14)
== END 2025-02-22 16:05 | disposition home or self-care (01) ==
LOC: CSHLD/OP 12:41
PROVIDERS: ATTEND Family Medicine
DX: O36.8330 Maternal care for abnormalities of the fetal heart rate or rhythm, third trimester, not applicable or unspecified (principal); O99.283 Endocrine, nutritional and metabolic diseases complicating pregnancy, third trimester; E03.9 Hypothyroidism, unspecified; O99.891 Other specified diseases and conditions complicating pregnancy; R10.11 Right upper quadrant pain; R51.9 Headache, unspecified; O34.211 Maternal care for low transverse scar from previous cesarean delivery; Z3A.35 35 weeks gestation of pregnancy; Z91.018 Allergy to other foods; Z79.890 Hormone replacement therapy; Z79.899 Other long term (current) drug therapy
CPT/HCPCS: 80053; 82570; 84156; 84443; 85025; 99284

== ENCOUNTER 2025-03-14 09:45 | Outpatient (CLI) | payer OTHER | END 2025-03-14 09:46 | disposition home or self-care (01) | LOC: CSHLAB 09:45 | PROVIDERS: ATTEND Obstetrics & Gynecology | DX: Z01.812 Encounter for preprocedural laboratory examination (principal); O34.219 Maternal care for unspecified type scar from previous cesarean delivery | CPT/HCPCS: 85014; 85018; 85049; 86780; 86850; 86900; 86901; 87340; 87389 ==